=== PATIENT | female | born 1995 | race Hispanic/Latino ===

== ENCOUNTER 2019-06-04 09:29 | Outpatient (CLI) | payer OTHER ==
--- NOTE | 2019-06-04 11:14 | ULT ---
OB ULTRASOUND: Date: 06/04/19 HISTORY: Evaluation of . FINDINGS: A single, live intrauterine gestation is seen, with measurements corresponding to an estimated gestat ional age of 19 weeks/4 days and FRANCIS at . The estimated weight measures 295 gm, or 10 oz (11% by Hadlock criteria). measurements are as follows: BPD: 4.48 cm, 19 weeks/4 days HC: 16.63 cm, 19 weeks/3 days AC: 14.15 cm, 19 weeks/4 days FL: 3.06 cm, 19 weeks/4 days heart rate measures 149 beats/minute. Placenta is posteriorly located without evidence of placenta previa. Amniotic fluid appears visually adequate. Cervical length measures 4.8 cm. A 3 vessel cord, cord insertion, kidneys, bladder, stomach, 4 chamber heart, lateral ventricles , cerebellum, spine, lips/nose, upper/lower extremities are visualized. No definite anomalies a re seen. The 3 vessel cord is visualized at the level of the bladder. IMPRESSION: Single, live intrauterine of 19 weeks/4 days estimated gestational age and FRANCIS at 0. POS: OFF
== END 2019-06-04 09:30 | disposition home or self-care (01) ==
LOC: BICULT 09:29
DX: Z34.82 Encounter for supervision of other normal pregnancy, second trimester (principal); Z3A.19 19 weeks gestation of pregnancy
CPT/HCPCS: 76805

== ENCOUNTER 2019-10-23 22:13 | Inpatient (IN) | payer MEDICAID, OTHER, SELFPAY ==
[2019-10-23] MEDS ORDERED: Carboprost 250 MCG/ML AMP IM PRN (23:18)
[2019-10-23] MEDS ORDERED: hydrALAZINE 20 MG/ML VIAL SLOW IVP PRN (23:18)
[2019-10-23] MEDS ORDERED: Misoprostol 200 MCG TAB PR PRN (23:18)
[2019-10-23] MEDS ORDERED: Ondansetron PF 4 MG/2 ML Vial IVP PRN (23:18)
[2019-10-23] MEDS ORDERED: HYDROcodone/Acetaminophen 5/325 mg Tablet PO PRN (23:18)
[2019-10-23] MEDS ORDERED: Butorphanol Tartrate 1 MG/ML VIAL SLOW IVP PRN (23:18)
[2019-10-23] MEDS ORDERED: Methylergonovine 0.2 MG/ML VIAL IM PRN (23:18)
[2019-10-23] MEDS ORDERED: Lidocaine 1% (PF) 30 ML VIAL SC PRN (23:18)
[2019-10-23] MEDS ORDERED: Promethazine HCl 25 MG/ML VIAL IM PRN (23:18)
[2019-10-23] MEDS ORDERED: Diphenoxylate HCl/Atropine Tablet PO PRN (23:18)
[2019-10-23] MEDS ORDERED: Ibuprofen 800 MG TAB PO PRN (23:18)
[2019-10-23] MEDS ORDERED: NS w/ Oxytocin 10 units 500 ML IV SCH ×2 (23:30)
[2019-10-23 23:32] VITALS: BMI 37.5
[2019-10-24] MEDS: Lactated Ringer's 1,000 ML IV SCH ×2 (00:48→01:43)
[2019-10-24 01:04] LABS: Hemoglobin 12.5 g/dL (12.0-16.0); Mean Corpuscular HGB CONC 33.3 g/dL (32.0-36.0); Mean Corpuscular Volume 84.2 fL (78.0-98.0); Mean Platelet Volume 9.1 fL (7.4-10.4); Platelet Count 245 thou/uL (130-400); RBC Distribution Width 12.9 % (11.5-14.5); Red Blood Cell (RBC) Count 4.45 mill/uL (4.20-5.40); White Blood Cell (WBC) Count 13.1 thou/uL (4.8-10.8)
[2019-10-24 01:52] LABS: HBSAg Index 0.18 S/CO (0-0.99); Hep B Surf Ag Non-Reactive S/CO (NonReactive)
[2019-10-24] MEDS: NS / Oxytocin 40 units/1000ml 1,000 ML IV PRN ×2 (02:13→03:29)
[2019-10-24 03:59] LABS: Syphilis Antibody Nonreactive (Nonreactive); Syphilis Antibody Index 0.04 S/CO (<1.00 Non-Reactive)
[2019-10-24] MEDS ORDERED: Milk Of Magnesia 30 ML UDCUP PO PRN (04:14)
[2019-10-24] MEDS ORDERED: diphenhydrAMINE 25 MG CAP PO PRN (04:14)
[2019-10-24] MEDS ORDERED: Promethazine HCl 25 MG/ML VIAL IM PRN (04:14)
[2019-10-24] MEDS ORDERED: Lanolin Ointment 7 GM TUBE TOP PRN (04:14)
[2019-10-24] MEDS ORDERED: Preparation H Ointment 57 gram tube RC PRN (04:14)
[2019-10-24] MEDS ORDERED: HYDROcodone/Acetaminophen 5/325 mg Tablet PO PRN ×2 (04:14)
[2019-10-24] MEDS ORDERED: Bisacodyl 10 MG SUPP PR PRN (04:14)
[2019-10-24] MEDS ORDERED: Ondansetron PF 4 MG/2 ML Vial IVP PRN (04:14)
[2019-10-24] MEDS ORDERED: Benzocaine-Menthol 82.5 ML CAN TOP PRN (04:14)
[2019-10-24] MEDS ORDERED: NS / Oxytocin 40 units/1000ml 1,000 ML IV SCH (04:14)
[2019-10-24] MEDS ORDERED: hydrALAZINE 20 MG/ML VIAL SLOW IVP PRN (04:14)
[2019-10-24] MEDS: Prenatal Vitamin 1 TAB PO SCH (08:51)
[2019-10-24] MEDS: Docusate Calcium (SURFAK) 240 MG CAP PO SCH ×2 (08:51→21:32)
[2019-10-24] MEDS: Ferrous Sulfate 325 MG TAB PO SCH ×2 (08:52→15:53)
[2019-10-24] MEDS ORDERED: Adacel (T-DAP) 0.5 ML SYRINGE IM ONE (09:00)
[2019-10-24] MEDS: Ibuprofen 800 MG TAB PO SCH ×2 (14:34→21:32)
[2019-10-25 05:47] LABS: Mean Corpuscular HGB CONC 33.5 g/dL (32.0-36.0); Mean Corpuscular Hemoglobin 28.3 pg (27.0-31.0); Mean Corpuscular Volume 84.7 fL (78.0-98.0); Platelet Count 212 thou/uL (130-400); RBC Distribution Width 12.8 % (11.5-14.5); Red Blood Cell (RBC) Count 3.88 mill/uL (4.20-5.40); White Blood Cell (WBC) Count 9.4 thou/uL (4.8-10.8)
[2019-10-25 08:31] VITALS: BP 120/59; TEMP 97.9
[2019-10-25] MEDS: Ferrous Sulfate 325 MG TAB PO SCH (09:24)
[2019-10-25] MEDS: Docusate Calcium (SURFAK) 240 MG CAP PO SCH (09:32)
[2019-10-25] MEDS: Prenatal Vitamin 1 TAB PO SCH (09:32)
== END 2019-10-25 17:55 | disposition home or self-care (01) | DRG 807 ==
LOC: L&D/OP 22:13 → L&D 10-24 01:44 → 3SE 10-24 04:37
PROVIDERS: ADMIT Family Medicine; ATTEND Family Medicine
PROC: 10E0XZZ Delivery of Products of Conception, External Approach (ICD-10-PCS; principal; 2019-10-24)
PROC: 0UQMXZZ Repair Vulva, External Approach (ICD-10-PCS; 2019-10-24)
DX: O70.0 First degree perineal laceration during delivery (principal); Z37.0 Single live birth; Z3A.40 40 weeks gestation of pregnancy
CPT/HCPCS: 36415; 85027; 86780; 86850; 86900; 86901; 87340; 99285; J2001